=== PATIENT | female | born 1955 | race Caucasian/White ===

== ENCOUNTER → 2023-09-18 09:11 | Outpatient (BNVA) | payer OTHER, SELFPAY | DX: Z13.6 Encounter for screening for cardiovascular disorders (principal) | CPT/HCPCS: 80061; 82947; 83036 ==

== ENCOUNTER → 2023-12-31 10:04 | Outpatient (BNVA) | payer OTHER, SELFPAY | PROVIDERS: PCP Nurse Practitioner Family; Visit Provider Nurse Practitioner Family | DX: R05.3 Chronic cough (principal) | CPT/HCPCS: 71046; 80053; 85025 ==

== ENCOUNTER → 2024-01-07 11:04 | Outpatient (BNVA) | payer OTHER, SELFPAY | PROVIDERS: PCP Nurse Practitioner Family; Visit Provider Nurse Practitioner Family | DX: R73.9 Hyperglycemia, unspecified (principal) | CPT/HCPCS: 83036 ==

== ENCOUNTER → 2024-02-10 15:54 | Outpatient (BNVA) | payer OTHER, SELFPAY | PROVIDERS: PCP Nurse Practitioner Family; Visit Provider Nurse Practitioner Family | DX: R07.9 Chest pain, unspecified (principal); M79.89 Other specified soft tissue disorders | CPT/HCPCS: 80053; 83880 ==

== ENCOUNTER 2024-03-22 07:51 | Oncology outpatient (recurring) (ONCR) | payer MEDICARE, SELFPAY ==
[2024-03-22 10:08] LABS: Basophils % 0.6 %; Eosinophils # 0.1 10^3/uL (0.0-0.8); Eosinophils % 2.8 %; Hematocrit 40.1 % (36-47); Lymphocytes # 1.1 10^3/uL (0.8-4.8); Lymphocytes % 32.1 %; Mean Corpuscular HGB Conc 33.4 g/dL (30-55); Mean Corpuscular Hemoglobin 33.2 pg (27-33); Mean Corpuscular Volume 99.3 fl (85-98); Mean Platelet Volume 10.6 fL (7.4-10.4); Monocytes # 0.3 10^3/uL (0.2-0.9); Monocytes % 8.8 %; Neutrophils # 1.95 10^3/uL (1.8-7.7); Neutrophils % 55.4 %; Nucleated Red Blood Cells % 0 %; Platelet Count 85 10^3/cmm (157-399); Red Blood Count 4.04 10^6/uL (3.85-5.65); Red Cell Distribution Width 13.2 % (12.1-15.1); White Blood Count 3.52 10^3/uL (3.29-11.43)
[2024-03-22 10:26] LABS: LAB Peripheral Smear Sent for Review
[2024-03-22 10:45] LABS: Alanine Aminotransferase 94 U/L (0-33); Albumin Level 3.6 g/dL (3.5-5.2); Alkaline Phosphatase 99 U/L (35-105); Anion Gap 13.1 (5-19); Aspartate Amino Transferase 120 U/L (0-32); Blood Urea Nitrogen 13 mg/dL (8-23); Calcium 8.7 mg/dL (8.5-10.5); Carbon Dioxide 24 mmol/L (22-29); Chloride 108 mmol/L (98-107); Creatinine Clr Calc Pharmacy 68.9353; Ferritin 134 ng/mL (15-150); Globulin 3.2 g/dL (1.3-4.6); Glomerular Filtration Rate 71.8 mL/min (90-130); Glucose 102 mg/dL (65-115); Iron 178 ug/dL (37-145); Lactate Dehydrogenase 296 U/L (135-214); Osmolality Calculated 292 mOsm/kg (285-295); Percent Saturation 57.6 % (20-50); Potassium 4.1 mmol/L (3.5-5.1); Sodium 141 mmol/L (136-145); Total Bilirubin 1.4 mg/dL (0.15-1.2); Total Iron Binding Capacity 309 mcg/dl; Total Protein 6.8 g/dL (6.6-8.7); Unsaturated Iron Binding 131 ug/dL (112-347); Vitamin B12 730 pg/mL (232-1245)
[2024-03-22 10:57] LABS: Folate Level 9.2 ng/mL (4.8-37.3)
== END 2024-03-27 23:59 | disposition home or self-care (01) ==
PROVIDERS: PCP Nurse Practitioner Family; Visit Provider Internal Medicine Medical Oncology
DX: R74.8 Abnormal levels of other serum enzymes (principal); R05.9 Cough, unspecified; D69.6 Thrombocytopenia, unspecified; R53.83 Other fatigue; D64.9 Anemia, unspecified; D73.1 Hypersplenism
CPT/HCPCS: 36415; 80053; 82607; 82728; 82746; 83540; 83550; 83615; 84443; 85025; 99204

== ENCOUNTER 2024-04-12 13:06 | Oncology outpatient (recurring) (ONCR) | payer MEDICARE, OTHER, SELFPAY ==
--- NOTE | 2024-04-12 13:15 | CTR_ITS ---
PROCEDURE INFORMATION: Exam: CT Chest With Contrast; Diagnostic Exam date and time: 04/12/2024 2:11 PM Age: 68 years old Clinical indication: Pain and abnormal findings; Abnormal lab test; Elevated liver enzymes; Abdominal pain; Localized; Other: Lower abdominal; Prior surgery; Surgery date: 6+ months; Surgery type: Tubal, appy; Additional info: Cough; Elevated liver enzymes; Thrombocytopenia TECHNIQUE: Imaging protocol: Diagnostic computed tomography of the chest with contrast. Radiation optimization: All CT scans at this facility use at least one of these dose optimization techniques: automated exposure control; mA and/or kV adjustment per patient size (includes targeted exams where dose is matched to clinical indication); or iterative reconstruction. Contrast material: OMNI 350; Contrast volume: 100 ml; Contrast route: INTRAVENOUS (IV); COMPARISON: CR XR chest 2V* [id number] 12/31/2023 10:04 AM RADIATION DOSE METRICS: Total DLP (mGy-cm): 999.67 FINDINGS: Thyroid: 5 mm right thyroid lobe nodule. Trachea: The central airways are patent. Lungs: No focal consolidation. Pleural spaces: No significant pleural effusion. No pneumothorax. Heart: The heart is normal in size. No pericardial effusion. Lymph nodes: No enlarged lymph nodes by size criteria. Vasculature: The aorta demonstrates mild atherosclerotic calcification. The aorta is normal in caliber. No aneurysm. No dissection. Mild aortic root calcifications. Bones/joints: The spine demonstrates mild degenerative changes at multiple levels. Soft tissues: Coarse benign calcifications within bilateral breasts. Soft tissues are unremarkable as visualized. COMMENTS: Consistent with the [employer]'s Incidental Findings Committee white paper (J Am Dipesh Radiol 2015): In patients aged 35 years and older with an incidental thyroid nodule equal to or greater than 1.[address], MRI or extrathyroidal US, further evaluation with dedicated thyroid US is recommended for patients with normal life expectancy and without comorbidities. For smaller nodules without suspicious features, no further evaluation or follow up is recommended. PROCEDURE INFORMATION: Exam: CT Abdomen And Pelvis With Contrast Exam date and time: 04/12/2024 2:11 PM Age: 68 years old Clinical indication: Pain and abnormal findings; Abnormal lab test; Elevated liver enzymes; Abdominal pain; Localized; Other: Lower abdominal; Prior surgery; Surgery date: 6+ months; Surgery type: Tubal, appy; Additional info: Cough; Elevated liver enzymes; Thrombocytopenia TECHNIQUE: Imaging protocol: Computed tomography of the abdomen and pelvis with contrast. Radiation optimization: All CT scans at this facility use at least one of these dose optimization techniques: automated exposure control; mA and/or kV adjustment per patient size (includes targeted exams where dose is matched to clinical indication); or iterative reconstruction. Contrast material: OMNI 350; Contrast volume: 100 ml; Contrast route: INTRAVENOUS (IV); COMPARISON: CR XR chest 2V* [id number] 12/31/2023 10:04 AM RADIATION DOSE METRICS: Total DLP (mGy-cm): 999.67 FINDINGS: Liver: Mildly nodular liver morphology, which may suggest early cirrhosis. Gallbladder and biliary ducts: Cholelithiasis without evidence of cholecystitis. There is no intra or extrahepatic biliary ductal dilatation. Pancreas: Cystic focal dilation of the pancreatic duct at the level of the uncinate process measuring up to 1.8 cm. The remainder of the pancreas is unremarkable. Spleen: Splenomegaly, measuring up to 18.0 cm in craniocaudal dimension. Adrenal glands: The adrenal glands are unremarkable. Kidneys and ureters: The kidneys are unremarkable. Stomach and bowel: There is no bowel wall thickening. No bowel obstruction. Appendix: Appendix is not identified. No findings to suggest acute appendicitis. Intraperitoneal space: No significant peritoneal free fluid. No free peritoneal air. Vasculature: The vasculature demonstrates diffuse mild atherosclerotic calcification. No aneurysm. Prominent perisplenic varices and splenorenal shunts. Lymph nodes: No enlarged lymph nodes by size criteria. Urinary bladder: The bladder is unremarkable. Reproductive: Uterus is unremarkable. No suspicious adnexal lesion seen. Postsurgical changes in the left adnexal region. Bones/joints: The spine demonstrates mild degenerative changes at multiple levels. Soft tissues: Soft tissues are unremarkable as visualized. CT/CT chest abdpel w/*[id number] IMPRESSION: No acute findings. IMPRESSION: 1. Mildly nodular liver morphology, suggestive of early cirrhosis. 2. Findings suggestive of portal hypertension, including splenomegaly, splenic varices and splenorenal shunt. 3. Cystic focal dilation of the pancreatic duct at the uncinate process measuring up to 1.8 cm, which may be a dilated side branch or IPMN. Reimaging every 6 months for 2 years, then every 1 year for 2 years, then every 2 years for 6 years is recommended. Alternatively, endoscopic ultrasound with fine needle aspiration is recommended. (Reference: Norm, 2017) 4. Cholelithiasis. REFERENCES: Norm PROCTOR, et al. Management of Incidental Pancreatic Cysts: A White Paper of the ACR Incidental Findings Committee. J Am Dipesh Radiol. 2017;14(7):911-923.
[2024-04-12] MEDS: iohexol 350 mg/mL 500 mL Btl (per mL) PO (14:17)
[2024-04-12] MEDS: iohexol 350 mg/mL 500 mL Btl (per mL) IV (14:17)
== END 2024-04-26 23:59 | disposition home or self-care (01) ==
LOC: RAD 13:08 → ONCMED 04-14 09:21
PROVIDERS: PCP Nurse Practitioner Family; Visit Provider Internal Medicine Medical Oncology
DX: R05.9 Cough, unspecified (principal); R74.8 Abnormal levels of other serum enzymes; D69.6 Thrombocytopenia, unspecified; E04.1 Nontoxic single thyroid nodule; I70.0 Atherosclerosis of aorta; R92.1 Mammographic calcification found on diagnostic imaging of breast; K80.20 Calculus of gallbladder without cholecystitis without obstruction; K82.8 Other specified diseases of gallbladder; K76.89 Other specified diseases of liver
CPT/HCPCS: 71260; 74177

== ENCOUNTER → 2024-04-13 14:31 | Outpatient (BNVA) | payer MEDICARE, OTHER, SELFPAY | PROVIDERS: PCP Nurse Practitioner Family; Visit Provider Internal Medicine Cardiovascular Disease | DX: R07.9 Chest pain, unspecified (principal); R06.02 Shortness of breath; I10 Essential (primary) hypertension; R05.9 Cough, unspecified; R94.31 Abnormal electrocardiogram [ECG] [EKG] | CPT/HCPCS: 93005; 99204 ==

== ENCOUNTER → 2024-05-06 09:26 | Outpatient (BNVA) | payer MEDICARE, OTHER, SELFPAY | PROVIDERS: PCP Nurse Practitioner Family; Visit Provider Physician Assistant | DX: S62.101A Fracture of unspecified carpal bone, right wrist, initial encounter for closed fracture; S62.102A Fracture of unspecified carpal bone, left wrist, initial encounter for closed fracture; X58.XXXA Exposure to other specified factors, initial encounter | CPT/HCPCS: 73110; 99204 ==

== ENCOUNTER 2024-05-12 13:42 | Day surgery (SDC) | payer MEDICARE, SELFPAY ==
[2024-05-12] VITALS (15 sets, daily range): BP systolic 129–199; BP diastolic 58–110; PULSE 80–99; RESP 11–24; TEMP 36.7–37.8; O2SAT 91–100; BMI 33.0
--- NOTE | 2024-05-12 08:56 | XR_ITS ---
WS: [id number] Left wrist, C-arm fluoroscopy views, 05/12/2024 Clinical Data: GALA PICS Comparison: Left wrist, 05/06/2024 Findings: Dr. Mcgraw placed a ventral plate attached with multiple screws to reduce a distal left radial fractur e. XR/XR wrist LT 2V [id number] Impression: Internal fixation of distal left radial fracture.
--- NOTE | 2024-05-12 13:41 | P.ANESASSM_ITS ---
Pre-Anesthetic Assessment Height/Weight: Height 5 ft 2 in Preop Diagnosis: Bilateral radius fractures Operation Date: 05/12/24 15:15 Proposed Procedures p ORIF Wrist ORIF Distal Radius(Bilateral) - Teddy [place], DO Was Beta Thai taken within 24 hours: N/A Was Clonidine taken within 24 hours: N/A Social No alcohol and No tobacco Exam alert, oriented x 3, clear to auscultation bilaterally and regular rate & rhythm Airway Submandibular: within normal limits Cervical ROM: within normal limits Mallampati: Class III Dentition: full Anesthetic Plan ASA status: 3 Anesthesia: General Other: No prior issues with anesthesia NPO since History of GERD on Protonix Hypertension on losartan and furosemide Chronic thrombocytopenia EKG sinus rhythm with nonspecific T wave abnormality Plan for general anesthesia Medications/Allergies Home Medications Medication Instructions Recorded Confirmed Last Taken Type compressor, for nebulizer #1 ea 12/31/23 05/06/24 Unknown Rx calcium 500 mg (as 2 tab PO DAILY #60 tabs 01/07/24 05/11/24 05/11/24 Rx carbonate)-vitamin D3 15 mcg (600 unit) tablet (Os-Santos 500 + D3) furosemide 20 mg tablet 20 mg PO DAILY #30 tabs 02/10/24 05/11/24 05/11/24 Rx fluticasone 100 mcg-salmeterol 50 1 inh inhalation BID #60 ea 04/13/24 05/11/24 05/11/24 Rx mcg/dose blistr powdr for inhalation (Advair Diskus) losartan 100 mg tablet 100 mg PO DAILY #90 tabs 04/13/24 05/11/24 05/11/24 Rx ibuprofen 800 mg tablet 800 mg PO TID PRN pain #60 tabs 05/03/24 05/11/24 05/10/24 Rx pantoprazole 40 mg tablet,delayed 40 mg PO DAILY #30 tabs 05/03/24 05/11/24 05/11/24 Rx release (Protonix) hydrocodone 7.5 mg-acetaminophen 1 tab PO Q6H PRN pain 7 days #28 05/06/24 05/11/24 05/11/24 Rx 325 mg tablet tabs hydrocodone 7.5 mg-acetaminophen 1 tab PO Q6H PRN pain #20 tabs 05/12/24 Unknown Rx 325 mg tablet Allergies Allergy/AdvReac Type Severity Reaction Status Date / Time No Known Allergies Allergy Unverified 05/06/24 09:32 [facility] Anesthesia Medical History History of bladder stone Gastroesophageal reflux disease Essential hypertension Surgical History History of removal of ovarian cyst Excision of right ovarian cyst and appendectomy Hx of tubal ligation Family History Father Heart disease Mother Stroke Sister Bladder cancer Social History Smoking and tobacco/nicotine status: never used tobacco/nicotine Second hand smoke exposure: No Alcohol intake: never Substance/Drug Use: never Adopted: No Caregiver/support person: No Lives independently: Yes Household members: family Housing: House Marital status: Number of children: 4 Highest education level completed: High School Graduate service: No Current occupational status: retired Data Anesthesia Cardiac Studies: No Data to Display
[2024-05-12] MEDS: sodium chloride 0.9% 1,000 ML 30 ML IV (14:35)
--- NOTE | 2024-05-12 14:36 | W.PM.OPSUD ---
Surgery/Procedure H&P Update DATE OF PROCEDURE: May 12, 2024 DATE H&P PERFORMED: 05/06/24 H&P UPDATE INFORMATION: I have reviewed H&P completed within last 30 days, I have examined patient prior to procedure and No changes to prior documentation PREOP DIAGNOSIS: Bilateral radius fractures PRIMARY INDICATION FOR PROCEDURE: Bilateral distal radius fractures displaced PLANNED PROCEDURE: Operation Date: 05/12/24 15:15 Proposed Procedures p ORIF Wrist ORIF Distal Radius(Bilateral) - Teddy Mcgraw DO
[2024-05-12] MEDS: acetaminophen 1,000 MG/100 ML PIGGYBACK 400 MG IV (14:40)
[2024-05-12] MEDS: ketorolac 30 mg/mL INJ IVP (14:40)
[2024-05-12] MEDS: ceFAZolin 2,000 MG in sodium chloride 0.9% (plus) 50 ML 100 MG IV (14:48)
[2024-05-12] MEDS: lidocaine 2% INJ 20 mL INJECTION (15:16)
[2024-05-12] MEDS: ROPivacaine 0.5% SDV 30 mL 150 MG INJECTION (15:17)
--- NOTE | 2024-05-12 17:44 | P.BOP_ITS ---
Date of Procedure: [May 12, 2024] Surgeon: [Dr. Mcgraw DO] Ultrasound Technol(s): [Mario Mcgraw PA-C] Procedure(s) performed: [Right wrist open reduction and internal fixation Left wrist open reduction and internal fixation] Findings of the procedure(s): [displaced Right distal radius fracture and displaced left distal radius fracture. Procedure went well and as planned.] Estimated blood loss: [30 ml] Specimen(s) removed: [n/a] Post-operative diagnosis: [Displaced right and left distal radius fractures.]
--- NOTE | 2024-05-12 17:45 | PM.OP ---
Operative Report Date of procedure: May 12, 2024 Surgeon: Teddy Mcgraw DO Cylindrical Mixer: Mario Mcgraw PA-C: PA was necessary for assistance in this case with wrist and hand positioning to execute the procedure, assistance with reduction, retraction and protection of neurovascular structures as well as to assist with wound closure and dressing application. Procedure: Preop Diagnosis ?Left?distal?radius fracture and ulnar styloid fracture Right distal radius fracture ulnar styloid fracture ? Procedure: Post-op diagnosis: Same Procedure done: Left?distal?radius open reduction internal fixation, 2?part extra-articular Right distal radius open reduction internal fixation, 3-part intra-articular Implants: ?Arthrex left 3-hole narrow volar locking plate Combination of locking and nonlocking screws 2.7 mm?distal Combination of locking and nonlocking screws 3.5 mm proximal ?Arthrex Right 3-hole narrow volar locking plate Combination of locking and nonlocking screws 2.7 mm?distal Combination of locking and nonlocking screws 3.5 mm proximal Surgeon: Teddy Mcgraw DO Anesthesia: General Estimated blood loss: 15 mL Tourniquet time: 33mins left 44mins right IV fluids: See anesthesia record Complications: None Findings: See operative report narrative Condition: stable Disposition: same day Brief History: Patient is a 68-year-old female who presented to my office for a bilateral distal radius fractures as well as ulnar styloid fractures.? Patient has significant comminution and shortening, and displacement as well as given bilateral, and given patient active and at this point time through shared decision making patient like to proceed with a bilateral?distal?radius ORIF.? We had a detailed discussion in the office about nonoperative and operative intervention.? At this point time I feel through shared decision? best option would be open reduction internal fixation she is active and already has a considerable deformity?? as result through shared decision making patient would like to proceed with ORIF bilateral?distal?radius fracture.? Detail the risk benefits complication alternatives to treatment option.? Understanding risk for surgery patient elects to proceed with surgical intervention.? All questions been answered at this time. Procedure: Patient seen and evaluated in the preoperative holding area.? Consent reviewed and signed with patient.? Correct extremities were marked and consent was reviewed and signed.? Patient was seen and evaluated by anesthesia department.? Underwent regional anesthesia. Once cleared for surgery pt was taken back to the operative suite.? Patient was then transported into the operative suite and kept on the OR gurney, all bony prominences well-padded patient was appropriate secured to bed in supine position.? An armboard was applied to the left upper extremity.? The left upper extremity had a nonsterile tourniquet applied.? Patient subsequently was then prepped and draped in standard orthopedic fashion she underwent anesthesia per the anesthesia department.? A final timeout was performed.? Patient received appropriate preoperative antibiotics. Esmarch was used exsanguinate the left upper extremity and tourniquet was insufflated to 250 mmHg. A standard modified FCR volar approach was performed to the left?distal?radius.? Sharp scalpel incision through skin and subcutaneous tissue.? I then switched to Littler dissection scissors identify the FCR tendon releases out of the sheath both proximally and?distally mobilized the tendon ulnarly and then subsequently incised the floor of the FCR tendon sheath with care to just incise the floor.? I then bluntly sweep the FPL tendon muscle belly ulnarly and placed blunt self-retaining retractor.? At this point time I direct visualization of the pronator quadratus which was incised in standard L fashion off the?radial and?distal?border in the?distal?radius and fracture site was scraped clean of interposed muscle belly.? I then identified the 2 part extra-articular?distal?radius fracture.? I did utilize a periosteal elevator to mobilize and release brachial radialis off of its distal insertion that was causing deformity to the fracture for fragment to help assist in reduction. I subsequently opened fracture site and freed of interposing muscle belly as well as periosteum and fracture hematoma.? I did have to utilize my [place] which was placed through the fracture pattern and disengage the fracture and performed manual manipulation and anatomic reduction of the?distal?radius fracture.? ?Once satisfied with reduction and had appropriate anatomic reduction of the volar cortex.? This was confirmed with mini C arm in multiple orthogonal imaging.? At this point time? I selected a Arthrex anatomic?distal?radius plate utilizing a narrow 3-hole plate which would have appropriate spread?distally.? This was then placed up to the?distal?radius while maintaining my reduction, pins were placed?distally and proximally to confirm appropriate placement of the plate along the?distal?radius.? Minor adjustments were made and once I was satisfied I then subsequently drilled a bicortical 3.5 screw proximally in the oblong hole to allow for appropriate sliding of the?distal?radius plate appropriately to perfect position on the?distal?radius.? This had excellent fixation and purchase and brought the plate to bone.? While maintaining my reduction I then confirmed in multiple orthogonal imaging that my plate was in appropriate position.? Once satisfied with my position I then subsequently placed the peek targeting guide on the?distal?locking screws with Arthrex.? The locking guide was then subsequently loaded and I subsequently drilled and placed a fully threaded cortical screw to compress the plate to bone for the?distal?fracture fragment.? This was performed with plan to then remove this and placed a shorter locking screw had bicortical fixation with excellent purchase and appropriate reduction of my volar tilt and bringing plate to bone of the?distal?fragment and plate.? Once I was satisfied with my plate position as well as reduction of the?distal?radius which was confirmed on AP oblique and lateral imaging I then subsequently drilled measured and placed 3 locking screws around this cortical screw.? Then I subsequently removed the cortical screw and placed a shorter locking screw that did not penetrate the dorsal cortex.?? This completed my?distal?fixation.? I did utilize mini C arm to confirm appropriate placement of the screws these were all within the?distal?radius and no joint involvement within the?radiocarpal joint or the DRUJ.? These had appropriate subchondral support and maintenance of reduction and fixation of the?distal?radius fracture.? ?I then turned my attention proximally and then I screwed in the locking guides for my final to screws proximally these were then subsequently drilled measured and appropriate length locking screws were then placed proximally with excellent fixation and locking technology into the plate.? This completed my construct.? The peek guide was subsequently removed and final imaging of the left?distal?radius open reduction internal fixation was taken of AP lateral as well and is orthogonal imaging.? I then took a inclination view which showed my?radial styloid screw and all other screws were out of the penetration of the joint.? All my?distal?screws were appropriate length did not penetrate dorsal cortex and did not penetrate the joint.? This completed my fixation.? Smooth wrist range of motion was then noted with no evidence of clicking. Wrist was then taken through pronation supination and stressed the DRUJ which was found to be stable.? The wound was then thoroughly irrigated.? Tourniquet was then subsequently deflated.? Hemostasis satisfactory with bipolar electrocautery.? I then subsequently placed interrupted 3-0 Vicryl sutures for subcutaneous tissue and then subsequently placed a nylon the skin for closure.? Incision was then dressed with Xeroform 4 x 4's Kerlix cast padding and a volar Ortho-Glass splint was then applied with Gamaliel wrap and placed in a sling.? This point all drapes were taken down and patient was attention focused towards the right distal radius ORIF. An armboard was applied to the right upper extremity.? The right upper extremity had a nonsterile tourniquet applied.? Patient subsequently was then prepped and draped in standard orthopedic fashion she underwent anesthesia per the anesthesia department.? Once again another timeout was performed confirming appropriate surgery and correct site as well as confirming preoperative antibiotics been given. Esmarch was used exsanguinate the right upper extremity and tourniquet was insufflated to 250 mmHg. A standard modified FCR volar approach was performed to the right?distal?radius.? Sharp scalpel incision through skin and subcutaneous tissue.? I then switched to Littler dissection scissors identify the FCR tendon releases out of the sheath both proximally and?distally mobilized the tendon ulnarly and then subsequently incised the floor of the FCR tendon sheath with care to just incise the floor.? I then bluntly sweep the FPL tendon muscle belly ulnarly and placed blunt self-retaining retractor.? At this point time I direct visualization of the pronator quadratus which was incised in standard L fashion off the?radial and?distal?border in the?distal?radius and fracture site was scraped clean of interposed muscle belly.? I then identified the 3 part intra-articular?distal?radius fracture. I did utilize a periosteal elevator to release the brachial radialis to help mobilize the fracture site as well as obtain reduction.? This was subsequently opened above and freed of interposing muscle belly as well as periosteum and fracture hematoma.? I did have to utilize my [place] which was placed through the fracture pattern and disengage the fracture and performed manual manipulation and anatomic reduction of the?distal?radius fracture.? ?Once satisfied with reduction and had appropriate anatomic reduction of the volar cortex.? This was confirmed with mini C arm in multiple orthogonal imaging.? At this point time? I selected a Arthrex anatomic?distal?radius plate utilizing a narrow 3-hole plate which would have appropriate spread?distally.? This was then placed up to the?distal?radius while maintaining my reduction, pins were placed?distally and proximally to confirm appropriate placement of the plate along the?distal?radius.? Minor adjustments were made and once I was satisfied I then subsequently drilled a bicortical 3.5 screw proximally in the oblong hole to allow for appropriate sliding of the?distal?radius plate appropriately to perfect position on the?distal?radius.? This had excellent fixation and purchase and brought the plate to bone.? While maintaining my reduction I then confirmed in multiple orthogonal imaging that my plate was in appropriate position.? Once satisfied with my position I then subsequently placed the peek targeting guide on the?distal?locking screws with Arthrex.? The locking guide was then subsequently loaded and I subsequently drilled and placed a fully threaded cortical screw to compress the plate to bone for the?distal?fracture fragment.? This was performed with plan to then remove this and placed a shorter locking screw had bicortical fixation with excellent purchase and appropriate reduction of my volar tilt and bringing plate to bone of the?distal?fragment and plate.? Once I was satisfied with my plate position as well as reduction of the?distal?radius which was confirmed on AP oblique and lateral imaging I then subsequently drilled measured and placed 3 locking screws around this cortical screw.? Then I subsequently removed the cortical screw and placed a shorter locking screw that did not penetrate the dorsal cortex.?? This completed my?distal?fixation.? I did utilize mini C arm to confirm appropriate placement of the screws these were all within the?distal?radius and no joint involvement within the?radiocarpal joint or the DRUJ.? These had appropriate subchondral support and maintenance of reduction and fixation of the?distal?radius fracture.? ?I then turned my attention proximally and then I screwed in the locking guides for my final to screws proximally these were then subsequently drilled measured and appropriate length locking screws were then placed proximally with excellent fixation and locking technology into the plate.? This completed my construct.? The peek guide was subsequently removed and final imaging of the left?distal?radius open reduction internal fixation was taken of AP lateral as well and is orthogonal imaging.? I then took a inclination view which showed my?radial styloid screw and all other screws which was confirmed they were out of the penetration of the joint.? All my?distal?screws were appropriate length did not penetrate dorsal cortex and did not penetrate the joint.? This completed my fixation.? Smooth wrist range of motion was then noted with no evidence of clicking. Wrist was then taken through pronation supination and stressed the DRUJ which was found to be stable.? The wound was then thoroughly irrigated.? Tourniquet was then subsequently deflated.? Hemostasis satisfactory with bipolar electrocautery.? I then subsequently placed interrupted 3-0 Vicryl sutures for subcutaneous tissue and then subsequently placed a nylon the skin for closure.? Incision was then dressed with Xeroform 4 x 4's Kerlix cast padding and a volar Ortho-Glass splint was then applied with Gamaliel wrap and placed in a sling.? Disposition: Patient taken to PACU in stable condition recovering well receive appropriate discharge instructions as well as pain medication postoperatively.? Maintain splint until follow-up.? Nonweightbearing to operative upper extremities We will follow-up with Ortho in the office in 2 weeks.? If any questions or concerns feel free to contact the office.
--- NOTE | 2024-05-12 17:53 | PM.PACU ---
PACU note Narrative: Patient is a 68-year-old female who just underwent a bilateral wrist open reduction internal fixation. Patient transferred to PACU in stable condition. Pain is well controlled. Dressing on hand is dry and in place. Patient's fingers are warm and well-perfused. Patient can wiggle fingers. normal cap refill under 2 seconds. Patient has normal elbow range of motion. Exam: awake Disposition: discharged
--- NOTE | 2024-05-12 18:36 | PC.NURSE ---
182 - SHAY Bearden notified of pts temp of 100.0 prior to moving to phase 2 - pt entered phase 1 with a temporal temp of 99.6 - Monisha aware of that as well
[2024-05-12] MEDS: HYDROcodone-acetaminophen 7.5-325 mg Tablet 1 TAB PO (19:05)
[2024-05-12] MEDS: fentaNYL 50 mcg/mL INJ 2mL IVP (19:52)
--- NOTE | 2024-05-12 20:10 | ANE.PACU2 ---
Inpatient post-anesthesia follow up: Airway intact: Yes Vital signs: Temperature 98.2 F Pulse Rate 82 Respiratory Rate 16 Blood Pressure 194/95 Pulse Oximetry 94 Oxygen Delivery Me thod Room Air Oxygen Flow Rate 6 Fraction of Inspir ed Oxygen Hydration adequate: Yes Nausea and vomiting: No Pain level: 1 Mental status: Baseline
--- NOTE | 2024-05-12 20:22 | SUR.PHASEII ---
PT arrived in post op phase 2 awake feeling of dizziness complaining of some pain in right arm pt did not receive pain meds in pacu due to not stating a need for pain medication. pt blood pressures were slightly elevated post surgery but were trending downward in the phase 2 recovery. The topographical drafter was consulted at 1922 and then the anesthesiologist was consulted further at 1944. pt still complaining of dizziness but anesthesia stated that was not unusual due to the amount of heavy medications the patient received during the surgery. Anesthesia was consulted when pt stated that they were seeing dark spots in their vision. the anesthesiologist stated as long as there was no huge spike in blood pressure that there was nothing to be concerned about. The Anesthesiologist requested that the patient be set up in a chair and to give the patient 50 mcg of Fentnyl to be given anesthesia stated that it could be caused from pt pain level which was assessed at a 7-8 on the pain scale. Medication was administered to the patient at 1951. pt blood pressure was reassessed at 1953 reading 194/95. pt stated prior to leaving that there were no further spots and the pt vision was clearing. pt discharged home at 2009
== END 2024-05-12 20:10 | disposition home or self-care (01) ==
PROVIDERS: PCP Nurse Practitioner Family; Visit Provider Student in an Organized Health Care Education/Training Program
PROC: (CPT 25607; principal; 2024-05-12 15:05)
DX: S52.512A Displaced fracture of left radial styloid process, initial encounter for closed fracture (principal); S52.611A Displaced fracture of right ulna styloid process, initial encounter for closed fracture; X58.XXXA Exposure to other specified factors, initial encounter; K21.9 Gastro-esophageal reflux disease without esophagitis; I10 Essential (primary) hypertension
CPT/HCPCS: 25607; 25609; 73100; 76000; C1713; J0131; J0690; J1100; J1171; J1885; J2405; J2704; J2795; J3010; J7030

== ENCOUNTER 2024-05-18 08:50 | Outpatient (CLI) | payer MEDICARE, SELFPAY ==
--- NOTE | 2024-05-18 09:15 | USCV_ITS ---
Lalo Emelymakenna Age: 68 Gender: F : 1955 Exam Date: 05/18/2024 08:57 Ordering Phys: Beatrice Casey MD ([email or web address]) Technologist: BRITTNEY Exam Location: [facility] [place] Indication: CHEST PAIN/SHORTNESS OF BREATH BP: 122 / 59 HR: 73 Rhythm: Sinus Technical Quality: Adequate MEASUREMENTS (Male / Female) Normal Values 2D ECHO LV Diastolic Diameter PLAX 4.0 cm 4.2 - 5.9 / 3.9 - 5.3 cm IVS Diastolic Thickness 1.0 cm 0.6 - 1.0 / 0.6 - 0.9 cm IVS Systolic Thickness 1.2 cm LVPW Diastolic Thickness 1.3 cm 0.6 - 1.0 / 0.6 - 0.9 cm LVPW Systolic Thickness 1.1 cm LVOT Diameter 2.1 cm LV Ejection Fraction 2D Teich 70.1 % LV Ejection Fraction MOD 4C 68.4 % LV Ejection Fraction MOD 2C 59.4 % LV Ejection Fraction 2C AL 62.9 % LA Diameter 3.8 cm RA Systolic Volume 4C AL 24.1 ml RA Systolic Volume 4C MOD 23.5 ml LA Sys Volume AL 46.7 cm cubed LA Sys Volume Index AL 24.0 cm cubed/m squared Aorta at Sinotubular Diameter 2.0 cm IVC Diameter 1.4 cm M-MODE LA Ao Ratio MM 0.9 AV Cusp Separation MM 1.6 cm DOPPLER AV Peak Velocity 191.8 cm/s LVOT Peak Velocity 107.0 cm/s AV Area Cont Eq vti 1.9 cm squared AV Area Cont Eq pk 1.9 cm squared MV Peak Velocity 98.0 cm/s MV Area PHT 3.2 cm squared Mitral E to A Ratio 0.9 TR Peak Velocity 309.0 cm/s TR Peak Gradient 38.2 mmHg TR Mean Velocity 248.0 cm/s TR Mean Gradient 26.8 mmHg TR Velocity Time Integral 97.7 cm TV Peak E Velocity 55.0 cm/s Right Atrial Pressure 3.0 mmHg Pulmonary Artery Systolic Pressu 41.2 mmHg PV Peak Velocity 147.0 cm/s RV Ejection Time 0.3 s FINDINGS Left Ventricle Normal left ventricular size, systolic function and wall thickness, with no regional wall motion abnormalities. Left ventricular ejection fraction is estimated at 60 %. Grade I/IV diastolic dysfunction (abnormal relaxation filling pattern), normal to mildly elevated filling pressures. Grade I/IV diastolic dysfunction (abnormal relaxation filling pattern), normal to mildly elevated filling pressures. Right Ventricle The right ventricle is normal in size and function. Mild pulmonary hypertension, RVSP 41.2 mmHg. Right Atrium The right atrium is normal in size. Left Atrium Moderately increased left atrial size. Mitral Valve Mildly thickened mitral valve. No mitral valve stenosis. Mild mitral valve regurgitation. Aortic Valve Structurally normal aortic valve without significant sclerosis or stenosis. There is no aortic regurgitation. Tricuspid Valve Structurally normal tricuspid valve without significant stenosis or regurgitation. Pulmonary artery systolic pressure is normal. Pulmonic Valve Structurally normal pulmonic valve without significant stenosis. There is no pulmonic regurgitation. Pericardium Normal pericardium without effusion. Aorta Normal ascending aorta dimension. IVC The inferior vena cava appears normal. CONCLUSIONS Normal left ventricular size, systolic function and wall thickness, with no regional wall motion abnormalities. Left ventricular ejection fraction is estimated at 60 %. Grade I/IV diastolic dysfunction (abnormal relaxation filling pattern), normal to mildly elevated filling pressures. Grade I/IV diastolic dysfunction (abnormal relaxation filling pattern), normal to mildly elevated filling pressures. The right ventricle is normal in size and function. Mild pulmonary hypertension, RVSP 41.2 mmHg. Moderately increased left atrial size. There is no pericardial effusion. Right atrial pressure is around 5 mm of mercury. Beatrice Casey MD (Electronically Signed) Final Date: 18 May 2024 20:32 S
== END 2024-05-18 08:51 | disposition home or self-care (01) ==
LOC: RAD 08:51
PROVIDERS: PCP Nurse Practitioner Family; Visit Provider Internal Medicine Cardiovascular Disease
DX: I50.30 Unspecified diastolic (congestive) heart failure (principal); R06.02 Shortness of breath
CPT/HCPCS: 93306

== ENCOUNTER → 2024-05-27 14:05 | Outpatient (BNVA) | payer MEDICARE, SELFPAY | PROVIDERS: PCP Nurse Practitioner Family; Visit Provider Physician Assistant | DX: S62.101D Fracture of unspecified carpal bone, right wrist, subsequent encounter for fracture with routine healing; S62.102D Fracture of unspecified carpal bone, left wrist, subsequent encounter for fracture with routine healing; X58.XXXD Exposure to other specified factors, subsequent encounter; Z98.890 Other specified postprocedural states | CPT/HCPCS: 73110 ==

== ENCOUNTER 2024-05-27 15:30 | Outpatient (CLI) | payer MEDICARE, SELFPAY | END 2024-05-27 15:31 | disposition home or self-care (01) | LOC: SOT 15:31 | PROVIDERS: Visit Provider Physician Assistant | DX: Z46.89 Encounter for fitting and adjustment of other specified devices (principal); S62.101D Fracture of unspecified carpal bone, right wrist, subsequent encounter for fracture with routine healing; S62.102D Fracture of unspecified carpal bone, left wrist, subsequent encounter for fracture with routine healing; X58.XXXD Exposure to other specified factors, subsequent encounter | CPT/HCPCS: 99024; L3984 ==

== ENCOUNTER → 2024-06-10 14:27 | Outpatient (BNVA) | payer MEDICARE, SELFPAY | PROVIDERS: PCP Nurse Practitioner Family; Visit Provider Physician Assistant | DX: Z98.890 Other specified postprocedural states (principal); S62.101D Fracture of unspecified carpal bone, right wrist, subsequent encounter for fracture with routine healing; S62.102D Fracture of unspecified carpal bone, left wrist, subsequent encounter for fracture with routine healing; X58.XXXD Exposure to other specified factors, subsequent encounter | CPT/HCPCS: 73110; 99024 ==

== ENCOUNTER 2024-07-02 09:45 | Outpatient (RCR) | payer MEDICARE, SELFPAY | END 2024-07-27 23:59 | disposition home or self-care (01) | LOC: SOT 09:45 | PROVIDERS: Visit Provider Physician Assistant | DX: S62.101A Fracture of unspecified carpal bone, right wrist, initial encounter for closed fracture (principal); Z98.890 Other specified postprocedural states | CPT/HCPCS: 97022; 97110; 97166; 99024 ==

== ENCOUNTER → 2024-07-02 10:51 | Outpatient (BNVA) | payer MEDICARE, SELFPAY | PROVIDERS: PCP Registered Nurse School; Visit Provider Physician Assistant | DX: Z98.890 Other specified postprocedural states (principal); S62.101D Fracture of unspecified carpal bone, right wrist, subsequent encounter for fracture with routine healing; S62.102D Fracture of unspecified carpal bone, left wrist, subsequent encounter for fracture with routine healing; X58.XXXD Exposure to other specified factors, subsequent encounter | CPT/HCPCS: 73110 ==

== ENCOUNTER 2024-07-02 11:33 | Outpatient (CLI) | payer MEDICARE, SELFPAY | END 2024-07-02 11:34 | disposition home or self-care (01) | LOC: SPT 11:34 | PROVIDERS: PCP Registered Nurse School; Visit Provider Physician Assistant | DX: Z46.89 Encounter for fitting and adjustment of other specified devices (principal); S62.101S Fracture of unspecified carpal bone, right wrist, sequela; S62.102S Fracture of unspecified carpal bone, left wrist, sequela; X58.XXXS Exposure to other specified factors, sequela | CPT/HCPCS: L3908 ==

== ENCOUNTER 2024-07-28 06:30 | Outpatient (RCR) | payer MEDICARE, SELFPAY | END 2024-08-27 23:59 | disposition home or self-care (01) | LOC: SOT 06:30 | PROVIDERS: PCP Nurse Practitioner Family; Visit Provider Physician Assistant | DX: S62.101A Fracture of unspecified carpal bone, right wrist, initial encounter for closed fracture (principal); S62.102A Fracture of unspecified carpal bone, left wrist, initial encounter for closed fracture; X58.XXXA Exposure to other specified factors, initial encounter | CPT/HCPCS: 97022; 97110 ==

== ENCOUNTER → 2024-08-13 10:19 | Outpatient (BNVA) | payer MEDICARE, SELFPAY | PROVIDERS: PCP Nurse Practitioner Family; Visit Provider Physician Assistant | DX: Z98.890 Other specified postprocedural states (principal); Z87.81 Personal history of (healed) traumatic fracture; S62.102D Fracture of unspecified carpal bone, left wrist, subsequent encounter for fracture with routine healing; X58.XXXD Exposure to other specified factors, subsequent encounter | CPT/HCPCS: 73110; 99213 ==

== ENCOUNTER → 2024-12-01 14:36 | Outpatient (BNVA) | payer MEDICARE, SELFPAY | PROVIDERS: PCP Nurse Practitioner Family; Visit Provider Internal Medicine Cardiovascular Disease | DX: I11.0 Hypertensive heart disease with heart failure (principal); I50.33 Acute on chronic diastolic (congestive) heart failure | CPT/HCPCS: 99214 ==

== ENCOUNTER 2024-12-22 16:15 | Outpatient (CLI) | payer MEDICARE, SELFPAY ==
[2024-12-22 19:04] LABS: Eosinophils # 0.1 10^3/uL (0.0-0.8); Eosinophils % 4.3 %; Hematocrit 38.2 % (36-47); Lymphocytes % 33.1 %; Mean Corpuscular HGB Conc 31.7 g/dL (30-55); Mean Corpuscular Volume 94.8 fl (85-98); Mean Platelet Volume 11.8 fL (7.4-10.4); Monocytes # 0.3 10^3/uL (0.2-0.9); Neutrophils # 1.53 10^3/uL (1.8-7.7); Neutrophils % 51.3 %; Nucleated Red Blood Cells % 0 %; Platelet Count 91 10^3/cmm (157-399); Red Blood Count 4.03 10^6/uL (3.85-5.65); Red Cell Distribution Width 15.5 % (12.1-15.1); White Blood Count 2.99 10^3/uL (3.29-11.43)
[2024-12-22 19:28] LABS: Alanine Aminotransferase 65 U/L (0-33); Albumin Level 3.4 g/dL (3.5-5.2); Alkaline Phosphatase 94 U/L (35-105); Aspartate Amino Transferase 119 U/L (0-32); Blood Urea Nitrogen 14 mg/dL (8-23); Calcium 8.7 mg/dL (8.5-10.5); Carbon Dioxide 22 mmol/L (22-29); Chloride 103 mmol/L (98-107); Globulin 3.7 g/dL (1.3-4.6); Glomerular Filtration Rate 71.5 mL/min (90-130); Glucose 62 mg/dL (65-115); Iron 115 ug/dL (37-145); Magnesium 2.3 mg/dL (1.7-2.3); Osmolality Calculated 288 mOsm/kg (285-295); Sodium 140 mmol/L (136-145); Total Bilirubin 1.2 mg/dL (0.15-1.2); Total Protein 7.1 g/dL (6.6-8.7)
== END 2024-12-22 16:16 | disposition home or self-care (01) ==
LOC: LAB 16:18
PROVIDERS: PCP Nurse Practitioner Family; Visit Provider Student in an Organized Health Care Education/Training Program
DX: K74.60 Unspecified cirrhosis of liver (principal); I95.9 Hypotension, unspecified; R60.0 Localized edema; I10 Essential (primary) hypertension; R60.9 Edema, unspecified
CPT/HCPCS: 80053; 83540; 83735; 85025

== ENCOUNTER → 2025-02-23 10:32 | Outpatient (BNVA) | payer MEDICARE, SELFPAY | PROVIDERS: PCP Nurse Practitioner Family; Visit Provider Nurse Practitioner Family | DX: I11.0 Hypertensive heart disease with heart failure (principal); I50.32 Chronic diastolic (congestive) heart failure; I34.0 Nonrheumatic mitral (valve) insufficiency; I87.2 Venous insufficiency (chronic) (peripheral) | CPT/HCPCS: 99213 ==

== ENCOUNTER → 2025-06-01 14:59 | Outpatient (BNVA) | payer MEDICARE, SELFPAY | PROVIDERS: PCP Nurse Practitioner Family; Visit Provider Internal Medicine Cardiovascular Disease | DX: I11.0 Hypertensive heart disease with heart failure (principal); I50.32 Chronic diastolic (congestive) heart failure; R00.2 Palpitations | CPT/HCPCS: 99213 ==